=== PATIENT | male | born 1990 | race Caucasian/White ===

== ENCOUNTER 2022-06-09 02:48 | Inpatient (IN) | payer MEDICAID ==
[~2022-06-09] VITALS: Ht 180.3 cm; Wt 72.1 kg
[2022-06-09] MEDS ORDERED: ONDANSETRON HCL/PF 4 MG/2 ML VIAL ONE (03:09)
--- NOTE | 2022-06-09 03:28 | NUR ---
AMALIA 76 FROM HOME FOR C/O EPIGASTRIC PAIN RADIATING TO THE UPPER CHEST SINCE YESTERDAY. PT AWAKE AND ALERT BREATHING EVEN AND UNLABORED. ASSISTED VIA WHEELCHAIR TO ER BED 3. CHANGED INTO GOWN AND PLACED ON TEST ENGINE MECHANIC AND PULSE OX. ER MD WAS AT BEDSIDE.
[2022-06-09] MEDS ORDERED: ONDANSETRON HCL/PF 4 MG/2 ML VIAL IVP ONE (03:30)
--- NOTE | 2022-06-09 03:31 | NUR ---
20G IV ESTABLISHED AT . BLOOD DRAWN AND SENT TO LAB
[2022-06-09 03:44] LABS: EOSINOPHILS % (AUTO) 1.3 % (0.0-6.0); HEMATOCRIT 34 % (39-51); HEMOGLOBIN 11.1 g/dL (13.5-17.5); LYMPHOCYTES # (AUTO) 1.2 K/uL (0.8-4.8); LYMPHOCYTES % (AUTO) 25.8 % (20.0-44.0); MEAN CORPUSCULAR HGB CONC 32 g/dl (31.0-36.0); MEAN CORPUSCULAR VOLUME 86 fL (80-96); MONOCYTES # (AUTO) 0.4 K/uL (0.1-1.30); MONOCYTES % (AUTO) 9.2 % (2.0-12.0); NEUTROPHILS # (AUTO) 2.9 K/uL (1.8-8.9); NEUTROPHILS % (AUTO) 62.7 % (43.0-81.0); PLATELET COUNT (AUTO) 211 K/uL (150-450); WHITE BLOOD COUNT (AUTO) 4.7 K/uL (4.3-11.0)
[2022-06-09 03:55] LABS: CALCIUM, SERUM 8.5 mg/dL (8.5-10.1); CARBON DIOXIDE 22 mmol/L (21-32); CHLORIDE 107 mmol/L (98-107); CREATININE 1.1 mg/dL (0.6-1.3); GLUCOSE 94 mg/dL (74-106); POTASSIUM 3.6 mmol/L (3.5-5.1); SODIUM SERUM 140 mmol/L (136-145); UREA NITROGEN, BLOOD 24 mg/dL (7-18)
--- NOTE | 2022-06-09 03:59 | NUR ---
XRAY AT BEDSIDE
[2022-06-09 04:09] LABS: ALANINE AMINOTRANSFERASE 50 U/L (12-78); ALBUMIN 3.6 g/dL (3.4-5.0); ALKALINE PHOSPHATASE 84 U/L (46-116); ASPARTATE AMINOTRANSFERASE 80 U/L (15-37); BILIRUBIN,DIRECT 0.2 mg/dL (0.0-0.2); BILIRUBIN,TOTAL 0.7 mg/dL (0.2-1.0); TOTAL PROTEIN, SERUM 7.6 g/dL (6.4-8.2)
[2022-06-09] MEDS ORDERED: ASPIRIN 325 MG TABLET PO ONE (04:30)
[2022-06-09] MEDS ORDERED: ASPIRIN 325 MG TABLET ONE (04:59)
--- NOTE | 2022-06-09 05:03 | NUR ---
PT SLEEPING COMFORTABLY IN BED REMAINS ON PULSE OX AND MONITOR. CALL LIGHT WITHIN REACH.
[2022-06-09] MEDS ORDERED: MAGNESIUM HYDROXIDE 30 ML UDC PO PRN (06:00)
[2022-06-09] MEDS ORDERED: ONDANSETRON HCL/PF 4 MG/2 ML VIAL IVP PRN (06:00)
[2022-06-09] MEDS ORDERED: ACETAMINOPHEN 325 MG TABLET PO PRN (06:00)
[2022-06-09] MEDS ORDERED: IV 1/2NS 1000 ML 1,000 ML IV PRN (06:00)
[2022-06-09] MEDS ORDERED: MORPHINE SULFATE INJ 2 MG/ML DISP.SYRIN IV PRN (06:00)
[2022-06-09] MEDS ORDERED: MAG HYDROX/AL HYDROX/SIMETH 30 ML UDC PO PRN (06:00)
--- NOTE | 2022-06-09 08:02 | NUR ---
REPORT GIVEN TO JUAN ALBERTO FOR NAIDA
[2022-06-09] MEDS ORDERED: ASPIRIN 81 MG TAB.CHEW PO SCH (09:00)
--- NOTE | 2022-06-09 09:00 | NUR ---
CYTOMETRY TECHNOLOGIST OPENING NOTE RECEIVED PATIENT FROM ER VIA GURNEY ACCOMPANIED BY 2 ER STAFF.PATIENT IS ALERT AND ORIENTED X 4, BREATHING UNLABORED AND NOT IN ANY FORM OF DISTRESS. PATIENT IS ORIENTED TO ROOM, ASSISTED IN NEEDS, AND PROVIDED AN OVERVIEW OF DIET AND TREATMENT PLAN. INITIAL ASSESSMENT DONE. WILL KEEP ON BED REST. BED IS LOCKED IN LOWEST POSITION, 3 SIDE RAILS UP, CALL LIGHT WITHIN REACH. WILL CONTINUE TO MONITOR.
[2022-06-09] MEDS: PANTOPRAZOLE 40 MG TABLET.DR PO SCH (09:51)
[2022-06-09] MEDS ORDERED: METO25TA3 PO (10:20)
[2022-06-09] MEDS ORDERED: SPIR25TA6 PO (10:20)
[2022-06-09] MEDS ORDERED: SACU1TAB7 PO (10:20)
[2022-06-09] MEDS ORDERED: FERR325T23 PO (10:20)
[2022-06-09] MEDS ORDERED: ASPI-1169 PO (10:20)
[2022-06-09] MEDS ORDERED: ATOR40TA PO (10:20)
[2022-06-09] MEDS ORDERED: TORS20TA3 PO (10:20)
[2022-06-09] MEDS: FUROSEMIDE 40 MG/4 ML VIAL IV SCH ×4 (10:29→18:25)
[2022-06-09] MEDS: CARVEDILOL 12.5 MG TABLET PO SCH ×2 (10:29→20:28)
[2022-06-09] MEDS: POTASSIUM CHLORIDE 20 MEQ TAB.PRT.SR PO SCH ×3 (10:29→12:49)
[2022-06-09 12:00] VITALS: BP 150/109
[2022-06-09] MEDS: CHLORDIAZEPOXIDE HCL 25 MG CAPSULE PO SCH ×2 (12:04→17:02)
[2022-06-09] MEDS ORDERED: TORSEMIDE 20 MG TABLET PO PRN (15:00)
[2022-06-09 16:00] VITALS: BP 148/105
--- NOTE | 2022-06-09 16:36 | NUR ---
RN NOTE PATIENT IS NOW ON O2 VIA NASAL CANNULA AT 2L/MIN HE FEELS SHORT OF BREATH. WILL CONTINUE TO MONITOR.
[2022-06-09] MEDS: ENTRESTO PO SCH (17:03)
--- NOTE | 2022-06-09 17:21 | NUR ---
RN NOTE PATIENT COMPLAINED OF NAUSEA. ZOFRAN INJECTION GIVEN. WILL CONTINUE TO MONITOR.
--- NOTE | 2022-06-09 18:34 | NUR ---
RN NOTE PATIENT REFUSED LAST DOSE OF FUROSEMIDE INJECTION, DESPITE EXPLAINING TO HIM THE BENEFITS OF THE DRUG AND THE RISKS IF HE DOESN'T TAKE IT. DR. NETTLES WAS UPDATED OF PATIENT'S REFUSAL. CHARGE NURSE MADE AWARE.
--- NOTE | 2022-06-09 18:43 | NUR ---
RN CLOSING NOTE PATIENT REMAINED STABLE THROUGHOUT SHIFT. TOLERATES OXYGEN VIA NASAL CANNULA AT 2L/MIN. SINUS RHYTHM ON NUTRITION INSTRUCTOR. LEFT WRIST IV INTACT AND PATENT. KEPT PATIENT ON BED REST. POSITION OF COMFORT IS NOTED TO BE SEMI-SALDANA'S TO HIGH BACK REST. DENIES PAIN, BREATHING UNLABORED AND NOT IN ANY FORM OF DISTRESS. ALL SAFETY PRECAUTIONS IN PLACE. WILL ENDORSE TO ADJUNCT HISTORY INSTRUCTOR NURSE.
[2022-06-09 20:00] VITALS: BP 154/99
[2022-06-10] VITALS: BP 147/90
[2022-06-10] MEDS ORDERED: hydrOXYzine 10 MG TABLET PO ONE (00:30)
[2022-06-10] MEDS ORDERED: LORAZEPAM 0.5 MG TABLET PO ONE (01:00)
--- NOTE | 2022-06-10 01:05 | NUR ---
RN NOTE INFORMED SOFT CRAB SHEDDER VINCE BANKS NP THAT PATIENT IS FEELING ANXIOUS. HE IS ON LIBRIUM TID AT HOME ONLY TOOK 2 DOSES TODAY. PROPERTY FIELD ADJUSTER ORIGINALLY ORDERED HYDROXYZINE BUT WE DONT CARRY IN [place]. RECEIVED ANOTHER OTHER FOR ATIVAN 0.5 ONE TIME DOSE, CARRIED OUT.
[2022-06-10 04:00] VITALS: BP 127/89
--- NOTE | 2022-06-10 07:32 | NUR ---
RN CLOSING NOTE PATIENT RESTING IN BED. A/OX4. NOW ON ROOM AIR. NO C/O CHEST PAIN. RECEIVED ONE TIME ORDER FRO ATIVAN FOR C/O ANXIETY. SINUS RHYTHM ON THE MONITOR. HR ON THE 90S. PENDING SOCIAL SERVICE CONSULT FOR ETOH ABUSE. AWAITING MEDICAL RECORDS FROM [facility].
--- NOTE | 2022-06-10 07:52 | NUR ---
ROLLER DIE CUTTING MACHINE OPERATOR OPENING NOTE Patient in bed, awake. A/O x 4, able to make needs known. On room air, breathing evenly and unlabored. IV access on Left wrist #20 SL, intact and patent. On tele monitoring showing SR, HR on the 90's. Safety precautions in place: bed in low, locked position; siderails up x 2; call light within reach. Will continue to monitor.
[2022-06-10 08:00] VITALS: BP 150/98
[2022-06-10] MEDS: CARVEDILOL 12.5 MG TABLET PO SCH ×2 (08:21→21:58)
[2022-06-10] MEDS: ASPIRIN 81 MG TAB.CHEW PO SCH (08:21)
[2022-06-10] MEDS: POTASSIUM CHLORIDE 20 MEQ TAB.PRT.SR PO SCH ×3 (08:22→11:56)
[2022-06-10] MEDS: SPIRONOLACTONE 25 MG TABLET PO SCH (08:22)
[2022-06-10] MEDS: TORSEMIDE 20 MG PO SCH (08:22)
[2022-06-10] MEDS: ENTRESTO PO SCH ×2 (08:22→16:44)
[2022-06-10] MEDS: ATORVASTATIN 40 MG TABLET PO SCH (08:23)
[2022-06-10] MEDS: PANTOPRAZOLE 40 MG TABLET.DR PO SCH (08:23)
[2022-06-10] MEDS: CHLORDIAZEPOXIDE HCL 25 MG CAPSULE PO SCH ×3 (08:23→16:43)
[2022-06-10] MEDS: FUROSEMIDE 100 MG/10 ML VIAL IV SCH ×4 (08:33→16:43)
[2022-06-10] MEDS ORDERED: METOPROLOL SUCCINATE 25 MG TAB.SR.24H PO SCH (09:00)
[2022-06-10] MEDS ORDERED: TORSEMIDE 20 MG PO PRN (09:00)
[2022-06-10] MEDS ORDERED: TORSEMIDE 20 MG TABLET PO SCH (09:00)
[2022-06-10 10:51] LABS: BASOPHILS # (AUTO) 0.1 K/uL (0.0-0.2); EOSINOPHILS % (AUTO) 1.1 % (0.0-6.0); HEMATOCRIT 38 % (39-51); HEMOGLOBIN 12.2 g/dL (13.5-17.5); LYMPHOCYTES # (AUTO) 0.5 K/uL (0.8-4.8); LYMPHOCYTES % (AUTO) 8.8 % (20.0-44.0); MEAN CORPUSCULAR HGB CONC 32 g/dl (31.0-36.0); MEAN CORPUSCULAR VOLUME 87 fL (80-96); MONOCYTES # (AUTO) 0.5 K/uL (0.1-1.30); MONOCYTES % (AUTO) 8.7 % (2.0-12.0); NEUTROPHILS # (AUTO) 4.6 K/uL (1.8-8.9); NEUTROPHILS % (AUTO) 80.4 % (43.0-81.0); PLATELET COUNT (AUTO) 211 K/uL (150-450); RED BLOOD CELL COUNT(AUTO) 4.41 MIL/uL (4.5-6.0); WHITE BLOOD COUNT (AUTO) 5.7 K/uL (4.3-11.0)
[2022-06-10 11:10] LABS: ALBUMIN 3.5 g/dL (3.4-5.0); BILIRUBIN,TOTAL 2.1 mg/dL (0.2-1.0); CALCIUM, SERUM 8.6 mg/dL (8.5-10.1); CREATININE 1.3 mg/dL (0.6-1.3); MAGNESIUM 1.7 mg/dL (1.8-2.4); POTASSIUM 3.7 mmol/L (3.5-5.1); TOTAL PROTEIN, SERUM 7.8 g/dL (6.4-8.2)
[2022-06-10 12:00] VITALS: BP 139/84
[2022-06-10] MEDS ORDERED: LORAZEPAM 1 MG TABLET PO PRN (13:30)
[2022-06-10 16:00] VITALS: BP 137/85
--- NOTE | 2022-06-10 17:22 | NUR ---
RN NOTE Lasix 80 mg x 3 doses was ordered for patient but patient has been refusing to take the full dose. For the first and second dose, he only wanted to get 40 mg and he refused the second dose. Dr. Crow made aware.
--- NOTE | 2022-06-10 19:26 | NUR ---
CHART COMPUTER CLOSING NOTE Patient in bed, resting. A/O x 4, able to make needs known. On room air, breathing evenly and unlabored. IV access on Left wrist #20 SL, intact and patent. On tele monitoring showing SR, HR on the 90's. Safety precautions in place: bed in low, locked position; siderails up x 2; call light within reach. Will endorse to night court magistrate nurse for NAIDA.
[2022-06-10 20:00] VITALS: BP 130/72
--- NOTE | 2022-06-10 20:00 | NUR ---
PATHOLOGY SECRETARY OPENING NOTES: RECEIVED PATIENT AWAKE IN BED BED IN LOW POSITION CALL LIGHTS WITHIN REACH, NO COMPLAIN OF PAIN AND DISCOMFORT AT THIS TIME, ON ROOM IAR SATURATING WELL, NO SOB WAS OBSERVED, PATIENT IS A/O X4 ABLE TO MAKE NEEDS KNOWN, AMBULATORY WITH SUPERVISION, IV LINE AT L WIRST #20SL PATIENT KEPT CLEAN AND DRY ALL NEEDS MET WILL CONTINUE TO MONITOR.
[2022-06-11] VITALS: BP_SYST 125; BP_SYST 130; BP_DIAS 72; BP_DIAS 75
[2022-06-11 04:00] VITALS: BP 129/77
--- NOTE | 2022-06-11 06:56 | NUR ---
SECURITY TESTER CLOSING NOTES: PATIENT AWAKE IN BED, BED IN LOW POSITION CALL LIGHTS WITHIN REACH, ON ROOM AIR SATURATING WELL, NO COMPLAIN ODF PAIN AND DISCOMFORT AT THIS TIME, PATIENT ON TELE MONITOR- SR-88 KEPT CLEAN AND DRY ALL NEEDS MET ENDORSE TO INCOMING SHIFT.
--- NOTE | 2022-06-11 07:20 | NUR ---
MANAGER CODING OPENING NOTES: RECEIVED PATIENT IN BED, AWAKE, ALERT, ORIENTED X 4. PATINE ON RA WITH OXYGEN SATURATION OF 97%. NO SOB NOTED, BREATHING EVEN AND UNLABORED. ON SR ON TELE MONITOR WITH HR OF 72. SALINE LOCK ON LEFT WRIST INTACT, FLUSHING WELL, NO REDNESS AND S/S INFILTRATION NOTED. BED LOCKED AND IN LOWEST POSITION. ALL SAFETY MEASURES IMPLEMENTED. CALL LIGHT WITHIN REACH. INSTRUCTED PATIENT TO USE URINAL TO MEASURE HIS URINE OUTPUT. PATIENT COMPLIANT. WILL CONTINUE TO MONITOR PATIENT THROUGHOUT SHIFT.
[2022-06-11] MEDS: PANTOPRAZOLE 40 MG TABLET.DR PO SCH (07:48)
[2022-06-11 08:00] VITALS: BP 140/97
[2022-06-11] MEDS: SPIRONOLACTONE 25 MG TABLET PO SCH (08:06)
[2022-06-11] MEDS: ASPIRIN 81 MG TAB.CHEW PO SCH (08:06)
[2022-06-11] MEDS: CARVEDILOL 12.5 MG TABLET PO SCH (08:07)
[2022-06-11] MEDS: ENTRESTO PO SCH ×2 (08:07→17:22)
[2022-06-11] MEDS: ATORVASTATIN 40 MG TABLET PO SCH (08:08)
[2022-06-11] MEDS: TORSEMIDE 20 MG PO SCH (08:08)
[2022-06-11] MEDS: CHLORDIAZEPOXIDE HCL 25 MG CAPSULE PO SCH ×3 (08:08→17:22)
[2022-06-11] MEDS ORDERED: FERROUS SULFATE (325 MG) 325 MG/TAB TABLET PO SCH (09:00)
[2022-06-11 10:56] LABS: BASOPHILS % (AUTO) 0.4 % (0.0-2.0); EOSINOPHILS % (AUTO) 1.5 % (0.0-6.0); HEMATOCRIT 41 % (39-51); HEMOGLOBIN 13.5 g/dL (13.5-17.5); LYMPHOCYTES # (AUTO) 0.5 K/uL (0.8-4.8); LYMPHOCYTES % (AUTO) 9.8 % (20.0-44.0); MEAN CORPUSCULAR HGB CONC 33 g/dl (31.0-36.0); MEAN CORPUSCULAR VOLUME 86 fL (80-96); MONOCYTES # (AUTO) 0.5 K/uL (0.1-1.30); MONOCYTES % (AUTO) 10.1 % (2.0-12.0); NEUTROPHILS # (AUTO) 4.1 K/uL (1.8-8.9); NEUTROPHILS % (AUTO) 78.2 % (43.0-81.0); PLATELET COUNT (AUTO) 240 K/uL (150-450); RED BLOOD CELL COUNT(AUTO) 4.78 MIL/uL (4.5-6.0); WHITE BLOOD COUNT (AUTO) 5.3 K/uL (4.3-11.0)
[2022-06-11 11:35] LABS: ALBUMIN 3.2 g/dL (3.4-5.0); CALCIUM, SERUM 8.8 mg/dL (8.5-10.1); CREATININE 1.3 mg/dL (0.6-1.3); MAGNESIUM 1.5 mg/dL (1.8-2.4); PHOSPHORUS 3.5 mg/dL (2.5-4.9); POTASSIUM 3.6 mmol/L (3.5-5.1); TOTAL PROTEIN, SERUM 7.6 g/dL (6.4-8.2)
[2022-06-11 12:00] VITALS: BP 102/65
[2022-06-11] MEDS ORDERED: CHLO25CA22 PO (13:56)
[2022-06-11] MEDS ORDERED: CARV12.52 PO (13:56)
[2022-06-11 16:00] VITALS: BP 18/65
--- NOTE | 2022-06-11 16:11 | NUR ---
RECEIVED A CALL FROM [facility] AND STATED THAT [facility] WILL BE DELIVERED TODAY AT 1645 AND PATIENT MAY BE DISCHARGED HOME.
--- NOTE | 2022-06-11 18:11 | NUR ---
JAMEL FROM [facility] CAME AND PROVIDED INSTRUCTIONS TO THE PATIENT
--- NOTE | 2022-06-11 18:54 | NUR ---
UPSETTER HELPER CLOSING NOTES: PATIENT IN BED, AWAKE, ALERT, ORIENTED X 4. NO SOB NOTED. PATIENT IS GETTING READY TO BE DISCHARGED BUT EXPLAINED TO HIM THAT THERE IS NO ORDER FOR HIS DISCHARGE YET AND WE WILL NOTIFY THE DOCTOR FIRST. PATIENT ALSO STATED THAT HE CHANGED HIS MIND ABOUT THE LIFEVEST. INFORMED PATIENT THAT THE DOCTOR WILL BE NOTIFIED FIRST AND WILL DETERMINE THE NEXT STEP. PATIENT AGREED AND UNDERSTOOD. PATIENT HAS NO C/O PAIN OR DISCOMFORT AT THIS TIME. SALINE LOCK ON LEFT WRIST, INTACT, NO S/S INFILTRATION NOTED. WILL ENDORSE TO THE INCOMING NURSE NURSE.
--- NOTE | 2022-06-11 19:10 | NUR ---
PATIENT INSISTED ON LEAVING THE FACILITY WITHOUT THE ORDER FROM THE DOCTOR. EXPLAINED THE RISKS AND BENEFITS BUT PATIENT STILL CHOSE TO LEAVE. PATIENT DECLINED TO USE THE LIFEVEST AND DECIDED TO JUST LEAVE IT AT THE FACILITY. PATIENT WILLINGLY SIGNED AMA FORM AND WAS MADE AWARE TO CALL 911 SOON HE DEVELOPS CHEST PAIN. PATIENT DENIES ANY C/O CHEST PAIN OR DISCOMFORT AT THIS TIME. DISCONTINUED IV AND NOTED TO HAVE THE HUB INTACT. TELE MONITOR WAS TAKEN OFF AND ID BAND WAS CUT OFF. ACCOMPANIED THE PATIENT TO THE PHARMACY TO GET HIS MEDICATIONS THAT HE DROPPED OFF UPON ADMISSION.
--- NOTE | 2022-06-11 20:06 | NUR ---
DR VINCE BANKS NOTIFIED AND CHARGE NURSE WAS ALSO MADE AWARE. NURSING FLAKEBOARD LINE TENDER WAS ALSO INFORMED
== END 2022-06-11 20:54 | disposition left against medical advice (07) | DRG 194 ==
LOC: ER 02:49 → TELE1 08:09
PROVIDERS: ADMIT Nurse Practitioner Family; ATTEND Nurse Practitioner Family
DX: I11.0 Hypertensive heart disease with heart failure (principal); I21.A1 Myocardial infarction type 2; I42.9 Cardiomyopathy, unspecified; F10.129 Alcohol abuse with intoxication, unspecified; I50.33 Acute on chronic diastolic (congestive) heart failure; Y90.6 Blood alcohol level of 120-199 mg/100 ml; E78.5 Hyperlipidemia, unspecified; F10.10 Alcohol abuse, uncomplicated; Z20.822 Contact with and (suspected) exposure to COVID-19; F41.9 Anxiety disorder, unspecified
CPT/HCPCS: 36415; 71045-TC; 80048-TC; 80053-TC; 80061-TC; 80076-TC; 83690-TC; 83735-TC; 83880; 84100-TC; 84484-TC; 85025-TC; 85730-TC; 87081-TC; 93307-TC; C9803; G0378; G0480; J1940; J2405; Q0177